=== PATIENT | female | born 1990 | race Caucasian/White ===

== ENCOUNTER 2017-02-10 09:03 | Day surgery (SDC) | payer OTHER ==
[~2017-02-10] VITALS: Ht 154.9 cm; Wt 57.0 kg
[~2017-02-10 09:03] MED LIST: ASPI-664 PO; CALC0.5C4 PO; CARV6.2579 PO; CLON-379 PO; FERR27TA PO; FOLI-49 PO; FURO80TA3 PO; LEVO250T9 PO; NEPH PO; RAMI5CAP46 PO
[2017-02-10 09:26] VITALS: Ht 154.9 cm; Wt 57.0 kg
[2017-02-10 09:27] VITALS: BP 159/87; PULSE 86; RESP 18
[2017-02-10] MEDS ORDERED: CLON-379 PO (09:45)
[2017-02-10] MEDS ORDERED: MIN10 PO (09:45)
[2017-02-10] MEDS ORDERED: FOLI-49 PO (09:45)
[2017-02-10] MEDS ORDERED: BENA40TA41 PO (09:45)
[2017-02-10] MEDS ORDERED: ALBU18HF INHALATION (09:45)
[2017-02-10] MEDS ORDERED: CARV6.2579 PO (09:45)
[2017-02-10] MEDS ORDERED: HYDR-3672 PO (09:45)
[2017-02-10] MEDS ORDERED: IODIXANOL LOCM 50 ML BTL ONE (10:12)
[2017-02-10] MEDS ORDERED: HEPARIN 1000 UNITS/NS (A-LINE) 1,000 ML ONE (10:12)
[2017-02-10] MEDS ORDERED: LIDOCAINE 1% (MDV) 20 ML INJ ONE (10:12)
[2017-02-10] MEDS ORDERED: IODIXANOL LOCM 100 ML BTL ONE (10:12)
--- NOTE | 2017-02-10 10:55 | OPR ---
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 PROCEDURE PERFORMED: 1. Left arm arteriovenous fistulogram. 2. Percutaneous venoplasty of cephalic arch severe stenosis. SURGEON: Mrelin Wilde MD ANESTHESIA: Local anesthesia. ESTIMATED BLOOD LOSS: Minimal. COMPLICATIONS: No intraprocedural complications. INDICATIONS: This is a 26-year-old woman with hypertension and end-stage renal disease, who has a l eft arm brachiocephalic AV fistula. It has been working well, it has a good thrill, but there are mu ltiple large collaterals going down into the forearm. She has some edema and the vein has gotten qu ite large and some pseudo-aneurysmal sort of diffuse enlargement, so I brought her in today for a fi stulogram. She had previous cephalic arch stenosis in the past and it was treated. DESCRIPTION OF PROCEDURE: The patient was brought to the r and d lab technician and placed on the table in the mosher pine position. The left arm was prepped and draped in the usual sterile fashion. I began by infilt rating over the fistula just above the elbow using about 5 mL of 1% Xylocaine. I used a micropunctu re needle to enter the vein under direct puncture. I then advanced an 0.018 wire through the needle , into the vein, and a micropuncture sheath was advanced over the wire into the vein. I then did an AV fistulogram, which identified the AV fistula itself was widely patent. There were some big nick aterals going off down into the forearm. There was a severe stenosis right in the cephalic arch, bu t below the clavicle the central veins were patent. The arterial anastomosis is patent. There were multiple collateral veins around that stenosis in the cephalic arch which are connecting to some of the neck veins. So again, you can see the IJ filling and then there is flow coming down from the I J into the central veins, but the central veins were all patent. I then advanced a Glidewire throug h the area of stenosis and into the right atrium and exchanged the micropuncture sheath for a 6-Fren ch sheath over the wire. I then angioplastied the cephalic arch with an 8 x 40-mm balloon. It looke d like almost complete occlusion prior to ballooning. After the ballooning there was still about a 50% residual stenosis. The balloon inflated easily, so it did not look like a tight stricture, more of just recoil. A did a couple views and the flow was quite good through the fistula. She is only 26, so if I put a stent, it is almost certain to cause eventual occlusion. I think we will just ke ep an eye on her. If the fistula keeps enlarging or becomes more of an issue, I might even consider revising it and taking the distal cephalic vein directly into the axillary vein with a bypass or a t ransposition, rather than stenting the cephalic arch. So I removed all the catheter sheaths and wir es and there was a good thrill in the fistula. There was good hemostasis. She was then transferred to the recovery room in stable condition. She tolerated the procedure well, without any complicati ons. Dictated By: MERLIN RODRIGUEZ/ADEBAYO Conf#: [id number] DID#: [id number] CC: SANDY CORONEL MD;*EndCC*
[2017-02-10 11:33] VITALS: BP 159/80; PULSE 82; RESP 18
== END 2017-02-10 11:36 | disposition home or self-care (01) ==
LOC: SDS 09:03
PROVIDERS: ATTEND Surgery Vascular Surgery
DX: T82.898A Other specified complication of vascular prosthetic devices, implants and grafts, initial encounter (principal); Y84.1 Kidney dialysis as the cause of abnormal reaction of the patient, or of later complication, without mention of misadventure at the time of the procedure; Y92.89 Other specified places as the place of occurrence of the external cause; I12.0 Hypertensive chronic kidney disease with stage 5 chronic kidney disease or end stage renal disease; N18.6 End stage renal disease
CPT/HCPCS: 36901; 37248; C1725; C1760; C1769; C1894; J1644; Q9967; Z7610

== ENCOUNTER 2017-07-07 10:39 | Day surgery (SDC) | payer OTHER ==
[2017-07-06 16:08] VITALS: Ht 154.9 cm; Wt 57.8 kg
[~2017-07-07] VITALS: Ht 154.9 cm; Wt 57.8 kg
[~2017-07-07 10:39] MED LIST changes: +ALBU18HF INHALATION; +BENA40TA41 PO; +HYDR-3672 PO; +MIN10 PO
[2017-07-07 11:38] VITALS: BP 119/62; PULSE 72; RESP 16
[2017-07-07] MEDS ORDERED: HEPARIN 1000 UNITS/NS (A-LINE) 1,000 ML ONE (13:04)
[2017-07-07] MEDS ORDERED: HEPARIN 1000 UNITS/ML 10 ML INJ ONE (13:04)
[2017-07-07] MEDS ORDERED: LIDOCAINE 1% (MDV) 20 ML INJ ONE (13:04)
--- NOTE | 2017-07-07 13:29 | SIPON ---
Date/Time of Note Date/Time of Note DATE: 07/07/17 TIME: 13:28 Operative Report Preoperative Diagnosis left arm swelling Postoperative Diagnosis same Operation/Procedure Performed L arm AVF gram, PTV subclavian vein stenosis, 10x40 to 8 maddison Surgeon see signature line assistant distribution manager none Anesthesia: other Estimated blood loss: none Transfusion Required none Specimen none Grafts/Implants none Complications none MERLIN LOZA MD Jul 07, 2017 13:29
--- NOTE | 2017-07-07 13:29 | SIPON ---
Date/Time of Note Date/Time of Note DATE: 07/07/17 TIME: 13:28 Operative Report Preoperative Diagnosis left arm swelling Postoperative Diagnosis same Operation/Procedure Performed L arm AVF gram, PTV subclavian vein stenosis, 10x40 to 8 maddison Surgeon see signature line sourcing assistant none Anesthesia: other Estimated blood loss: none Transfusion Required none Specimen none Grafts/Implants none Complications none MERLIN LOZA MD Jul 07, 2017 13:29
--- NOTE | 2017-07-07 13:29 | SIPON ---
Date/Time of Note Date/Time of Note DATE: 07/07/17 TIME: 13:28 Operative Report Preoperative Diagnosis left arm swelling Postoperative Diagnosis same Operation/Procedure Performed L arm AVF gram, PTV subclavian vein stenosis, 10x40 to 8 maddison Surgeon see signature line assistant loan processor none Anesthesia: other Estimated blood loss: none Transfusion Required none Specimen none Grafts/Implants none Complications none MERLIN LOZA MD Jul 07, 2017 13:29
[2017-07-07 13:53] VITALS: BP 127/61; PULSE 89; RESP 16
--- NOTE | 2017-07-07 14:51 | OPR ---
DATE OF OPERATION: 07/07/2017 PREOPERATIVE DIAGNOSIS: Left arm swelling. POSTOPERATIVE DIAGNOSIS: Left arm swelling. PROCEDURE PERFORMED: Left arm arteriovenous fistulogram with percutaneous venoplasty of the subclav keren vein. SURGEON: Merlin Wilde MD ANESTHESIA: Local anesthesia. ESTIMATED BLOOD LOSS: Minimal. COMPLICATIONS: No intraprocedural complications. INDICATIONS: A 26-year-old woman who has been on dialysis for about 3 years via left arm AV fistula . The fistula has become very pulsatile and she states that the arm feels full and there are multip le large collaterals developing in the upper arm and forearm, so I brought her in for a fistulogram to salvage the fistula and help prevent further arm swelling. PROCEDURE: The patient was brought to the cathead operator, placed on the table in supine position. Left arm was prepped and draped in the usual sterile fashion. I began by infiltrating over the base of t he fistula just above the arterial anastomosis with 10 mL of 1% Xylocaine. Using micropuncture need le to enter the vein under manual guidance. An 0.018 wire was inserted through the needle elian ropuncture sheath was advanced over the wire into the vein. I did a fistulogram through the micropu ncture sheath and identified a severe stenosis, a web-like stenosis in the subclavian vein just unde r the clavicle. There are multiple collaterals around this area. So I advanced an 0.035 Glidewire through the micropuncture sheath and into the central venous system through the area of stenosis, ex changed the micropuncture sheath for a 6-Tajik sheath over the wire. I then used a 10 mm x 4 cm ba lloon to angioplasty that cephalic vein stenosis. There was a fairly tight waste even after inflati on to about 8-10 atmospheres. There was still a little bit of a waste, but she started having a lot of pain so I did not want to dilate any further. Completion fistulogram after dilation showed some mild residual stenosis in the subclavian vein, but now the collaterals were less and there was a ve ry soft thrill in the fistula, but was happy with the result. I tried to get some views of the kita rial anastomosis, but there were so many collaterals and the vein is so large in the lower portion o f the upper arm that all the contrast would go out through the collaterals. I could not get an adeq uate view of the arterial anastomosis; however, there was a good flow and good pulse in the fistula when it is compressed, so I do not think here is any issue with the arterial anastomosis. The sheat h was removed. Pressure was held until there was good hemostasis. She tolerated the procedure well without any complications. Dictated By: MERLIN RODRIGUEZ/ADEBAYO Conf#: [id number] DID#: [id number] CC: SANDY CORONEL MD;*EndCC*
--- NOTE | 2017-07-07 14:51 | OPR ---
DATE OF OPERATION: 07/07/2017 PREOPERATIVE DIAGNOSIS: Left arm swelling. POSTOPERATIVE DIAGNOSIS: Left arm swelling. PROCEDURE PERFORMED: Left arm arteriovenous fistulogram with percutaneous venoplasty of the subclav keren vein. SURGEON: Merlin Wilde MD ANESTHESIA: Local anesthesia. ESTIMATED BLOOD LOSS: Minimal. COMPLICATIONS: No intraprocedural complications. INDICATIONS: A 26-year-old woman who has been on dialysis for about 3 years via left arm AV fistula . The fistula has become very pulsatile and she states that the arm feels full and there are multip le large collaterals developing in the upper arm and forearm, so I brought her in for a fistulogram to salvage the fistula and help prevent further arm swelling. PROCEDURE: The patient was brought to the manufacturing lab technician, placed on the table in supine position. Left arm was prepped and draped in the usual sterile fashion. I began by infiltrating over the base of t he fistula just above the arterial anastomosis with 10 mL of 1% Xylocaine. Using micropuncture need le to enter the vein under manual guidance. An 0.018 wire was inserted through the needle elian ropuncture sheath was advanced over the wire into the vein. I did a fistulogram through the micropu ncture sheath and identified a severe stenosis, a web-like stenosis in the subclavian vein just unde r the clavicle. There are multiple collaterals around this area. So I advanced an 0.035 Glidewire through the micropuncture sheath and into the central venous system through the area of stenosis, ex changed the micropuncture sheath for a 6-Irish sheath over the wire. I then used a 10 mm x 4 cm ba lloon to angioplasty that cephalic vein stenosis. There was a fairly tight waste even after inflati on to about 8-10 atmospheres. There was still a little bit of a waste, but she started having a lot of pain so I did not want to dilate any further. Completion fistulogram after dilation showed some mild residual stenosis in the subclavian vein, but now the collaterals were less and there was a ve ry soft thrill in the fistula, but was happy with the result. I tried to get some views of the kita rial anastomosis, but there were so many collaterals and the vein is so large in the lower portion o f the upper arm that all the contrast would go out through the collaterals. I could not get an adeq uate view of the arterial anastomosis; however, there was a good flow and good pulse in the fistula when it is compressed, so I do not think here is any issue with the arterial anastomosis. The sheat h was removed. Pressure was held until there was good hemostasis. She tolerated the procedure well without any complications. Dictated By: MERLIN RODRIGUEZ/ADEBAYO Conf#: [id number] DID#: [id number] CC: SANDY CORONEL MD;*EndCC*
--- NOTE | 2017-07-07 14:51 | OPR ---
DATE OF OPERATION: 07/07/2017 PREOPERATIVE DIAGNOSIS: Left arm swelling. POSTOPERATIVE DIAGNOSIS: Left arm swelling. PROCEDURE PERFORMED: Left arm arteriovenous fistulogram with percutaneous venoplasty of the subclav keren vein. SURGEON: Merlin Wilde MD ANESTHESIA: Local anesthesia. ESTIMATED BLOOD LOSS: Minimal. COMPLICATIONS: No intraprocedural complications. INDICATIONS: A 26-year-old woman who has been on dialysis for about 3 years via left arm AV fistula . The fistula has become very pulsatile and she states that the arm feels full and there are multip le large collaterals developing in the upper arm and forearm, so I brought her in for a fistulogram to salvage the fistula and help prevent further arm swelling. PROCEDURE: The patient was brought to the picket labor union, placed on the table in supine position. Left arm was prepped and draped in the usual sterile fashion. I began by infiltrating over the base of t he fistula just above the arterial anastomosis with 10 mL of 1% Xylocaine. Using micropuncture need le to enter the vein under manual guidance. An 0.018 wire was inserted through the needle elian ropuncture sheath was advanced over the wire into the vein. I did a fistulogram through the micropu ncture sheath and identified a severe stenosis, a web-like stenosis in the subclavian vein just unde r the clavicle. There are multiple collaterals around this area. So I advanced an 0.035 Glidewire through the micropuncture sheath and into the central venous system through the area of stenosis, ex changed the micropuncture sheath for a 6-Khmer sheath over the wire. I then used a 10 mm x 4 cm ba lloon to angioplasty that cephalic vein stenosis. There was a fairly tight waste even after inflati on to about 8-10 atmospheres. There was still a little bit of a waste, but she started having a lot of pain so I did not want to dilate any further. Completion fistulogram after dilation showed some mild residual stenosis in the subclavian vein, but now the collaterals were less and there was a ve ry soft thrill in the fistula, but was happy with the result. I tried to get some views of the kita rial anastomosis, but there were so many collaterals and the vein is so large in the lower portion o f the upper arm that all the contrast would go out through the collaterals. I could not get an adeq uate view of the arterial anastomosis; however, there was a good flow and good pulse in the fistula when it is compressed, so I do not think here is any issue with the arterial anastomosis. The sheat h was removed. Pressure was held until there was good hemostasis. She tolerated the procedure well without any complications. Dictated By: MERLIN RODRIGUEZ/ADEBAYO Conf#: [id number] DID#: [id number] CC: SANDY CORONEL MD;*EndCC*
== END 2017-07-07 14:15 | disposition home or self-care (01) ==
LOC: SDS 10:39
PROVIDERS: ATTEND Surgery Vascular Surgery
DX: T82.898A Other specified complication of vascular prosthetic devices, implants and grafts, initial encounter (principal); Y84.8 Other medical procedures as the cause of abnormal reaction of the patient, or of later complication, without mention of misadventure at the time of the procedure; Y92.89 Other specified places as the place of occurrence of the external cause; I12.0 Hypertensive chronic kidney disease with stage 5 chronic kidney disease or end stage renal disease; N18.6 End stage renal disease
CPT/HCPCS: 36901; 84132; C1725; C1894; J1644; Z7610

== ENCOUNTER 2018-05-18 09:11 | Day surgery (SDC) | END 2018-05-18 11:22 | disposition home or self-care (01) ==

== ENCOUNTER 2019-03-13 09:23 | Day surgery (SDC) | payer OTHER ==
[~2019-03-13] VITALS: Ht 154.9 cm; Wt 61.9 kg
[~2019-03-13 09:23] MED LIST changes: -ALBU18HF INHALATION; -ASPI-664 PO; -BENA40TA41 PO; +BENA40TA56 PO; -CALC0.5C4 PO; -CARV6.2579 PO; -CLON-379 PO; +CLON0.2T5 PO; -FERR27TA PO; -FOLI-49 PO; -FURO80TA3 PO; -LEVO250T9 PO; -MIN10 PO; -RAMI5CAP46 PO; +SEVE0.8P PO; +SUCR500T PO
[2019-03-13] MEDS ORDERED: CARV25TA79 PO (10:29)
[2019-03-13] MEDS ORDERED: BENA40TA56 PO (10:30)
[2019-03-13] MEDS ORDERED: HYDR-3672 PO (10:30)
[2019-03-13] MEDS ORDERED: FOLI-49 PO (10:31)
[2019-03-13] MEDS ORDERED: FOLI1CAP PO (10:33)
[2019-03-13] MEDS ORDERED: FURO80TA3 PO (10:33)
[2019-03-13 11:22] VITALS: Ht 154.9 cm; Wt 61.9 kg
[2019-03-13 11:37] VITALS: BP 142/77; PULSE 70; RESP 16
[2019-03-13] MEDS ORDERED: LIDOCAINE 1% (MDV) 20 ML INJ ONE (14:34)
[2019-03-13] MEDS ORDERED: IODIXANOL LOCM 100 ML BTL ONE (14:34)
[2019-03-13] MEDS ORDERED: HEPARIN 1000 UNITS/NS (A-LINE) 1,000 ML ONE (14:34)
[2019-03-13 15:30] VITALS: BP 148/76; PULSE 71; RESP 18
--- NOTE | 2019-03-13 18:27 | OPR ---
DATE OF OPERATION: 03/13/2019 PREOPERATIVE DIAGNOSIS: End-stage renal disease with left arm arteriovenous fistula malfunction. POSTOPERATIVE DIAGNOSIS: End-stage renal disease with left arm arteriovenous fistula malfunction. PROCEDURE PERFORMED: Left arm arteriovenous fistulogram, percutaneous venoplasty of cephalic arch ve in stenosis. SURGEON: Merlin Wilde MD ANESTHESIA: Local anesthesia. ESTIMATED BLOOD LOSS: Minimal. COMPLICATIONS: No intraprocedural complications. INDICATIONS: This is a 28-year-old woman with hypertension and end-stage renal disease. She develop ed it from the preeclampsia. She is nondiabetic. She has a left upper arm AV fistula to brachioceph alic fistula. 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 I brought her in today for a fistulogram and possible intervention. DESCRIPTION OF PROCEDURE: The patient was brought to the film laboratory technician, placed on the table in supine pos ition. Left arm was prepped and draped in the usual sterile fashion. I infiltrated over the left ar m brachiocephalic AV fistula just above the elbow. Using about 10 mL of 1% Xylocaine using micropunc ture needle to enter the fistula, I used an 0.018 wire through the needle into the fistula and a micr opuncture sheath was advanced over the wire into the fistula. I then did a fistulogram that showed t he fistula is widely patent from the arterial anastomosis all the way to the central veins to brachio cephalic fistula get up to the cephalic arch. There are multiple collaterals going around the area of narrowing. It is very hard to see exactly where it is, but there are just multiple collatera ls that go around then collateralized with the internal jugular vein on the other side of the stenosi s in the cephalic arch. Some of it was web-like stenosis. I treated this area before, so I then adv anced an 0.035 Glidewire through the micropuncture sheath. I advanced it down through the stenosis a nd down into the right atrium. I exchanged the micropuncture sheath for 6-Malay sheath over the wir e then used a 7 mm x 100 mm balloon to angioplasty cephalic arch. She had a lot of pain and pressure in the chest when we ballooned it. Even with the 7 mm balloon, we inflated at 12 atmospheres for a minute. After venoplasty, injection shows better flow. There are still some collaterals, but they f ill much later and there is brisk flow going right through the area of the stenosis now. I feel the fistula and that there is now soft thrill where it was very pulsatile before the venoplasty. I was h appy with the result. The only other alternative would be to surgically swing the cephalic vein down and anastomose to the axillary vein to bypass around the cephalic arch region, so we then removed al l the catheter sheaths and wires, put a 4-0 Monocryl pursestring suture on the puncture site. There was good hemostasis. Sterile dressing was applied and she was then discharged home to undergo dialys is tomorrow morning. Dictated By: MERLIN RODRIGUEZ/ADEBAYO Conf#: [id number] DID#: [id number]
== END 2019-03-13 15:40 | disposition home or self-care (01) ==
LOC: SDS 09:23
PROVIDERS: ATTEND Surgery Vascular Surgery
DX: T82.590D Other mechanical complication of surgically created arteriovenous fistula, subsequent encounter (principal); Y84.1 Kidney dialysis as the cause of abnormal reaction of the patient, or of later complication, without mention of misadventure at the time of the procedure; I12.0 Hypertensive chronic kidney disease with stage 5 chronic kidney disease or end stage renal disease; N18.6 End stage renal disease
CPT/HCPCS: 36902; 84132; J1644; Q9967; Z7610; C1725; C1887; C1894